=== PATIENT | male | born 1970 | race Caucasian/White ===

== ENCOUNTER → 2017-04-11 | Outpatient (CLI) | payer OTHER ==
[~2017-04-11] MED LIST: AMLO5TAB2 PO; CETI10TA24 PO; DOCU-180 PO; HYDR-3240 PO; METH500T97 PO; OMEP10CA4 PO; OXYC-302 PO; PREG100C PO
[2017-04-11 15:20] LABS: EPI LOT# 5695218
[2017-04-11 15:27] LABS: HCT (PFA) 48.3 % (39.2-51.8); PLATELET (PFA) 186 x10^3/uL (130-400)
[2017-04-11 15:28] LABS: HEMATOCRIT 47.9 % (39.2-51.8); HEMOGLOBIN 16.5 g/dL (13.7-18.0); WHITE BLOOD COUNT 5.9 x10^3/uL (3.4-10)
[2017-04-11 15:40] LABS: BLOOD UREA NITROGEN 13 mg/dL (7-18)
[2017-04-11 15:59] LABS: EPI CARTRIDGE 91 SECONDS (72-193)
== END | disposition home or self-care (01) ==
LOC: STAR 14:03
PROVIDERS: ATTEND Neurological Surgery
DX: Z01.818 Encounter for other preprocedural examination (principal); M43.22 Fusion of spine, cervical region; M54.12 Radiculopathy, cervical region; R79.1 Abnormal coagulation profile
CPT/HCPCS: 36415; 71020; 80048; 81003; 85014; 85025; 85049; 85576; 85610; 85730; 93005

== ENCOUNTER 2017-04-19 05:45 | Inpatient (IN) | payer OTHER ==
[~2017-04-19] VITALS: Ht 182.9 cm; Wt 114.0 kg
[2017-04-19] MEDS ORDERED: LACTATED RINGERS 1,000 ML IV SCH (06:13)
[2017-04-19] MEDS ORDERED: FENTANYL PF 100 MCG/2ML ONE ×3 (06:57→09:50)
[2017-04-19] MEDS ORDERED: MIDAZOLAM 1 MG/ML, 2ML ONE (06:57)
[2017-04-19] MEDS ORDERED: ROCURONIUM 10 MG/ML ONE (06:58)
[2017-04-19] MEDS ORDERED: PROPOFOL 10 MG/ML, 20ML ONE (06:58)
[2017-04-19] MEDS ORDERED: CEFAZOLIN 1,000 MG ONE ×2 (07:04)
[2017-04-19] MEDS ORDERED: DEXAMETHASONE 4 MG/ML, 1ML ONE ×3 (07:04)
[2017-04-19] MEDS ORDERED: THROMBIN 5,000 UNIT VIAL TP ONE (07:13)
[2017-04-19] MEDS ORDERED: BACITRACIN 50,000 UNIT ONE (07:13)
[2017-04-19] MEDS ORDERED: EPINEPHRINE 1 MG/ML, 1ML ONE (07:13)
[2017-04-19] MEDS ORDERED: BUPIVACAINE/PF 0.5% ONE (07:13)
[2017-04-19] MEDS ORDERED: DIAZEPAM 5 MG/ML, 2ML IVPush PRN (09:00)
[2017-04-19] MEDS ORDERED: OXYcodone 5 MG/5 ML ORAL.SOL UDC PO PRN (09:00)
[2017-04-19] MEDS ORDERED: hydrALAzine 20 MG/ML, 1ML IV PRN (09:00)
[2017-04-19] MEDS ORDERED: MEPERIDINE/PF 25MG/0.5ML IVPush PRN (09:00)
[2017-04-19] MEDS ORDERED: LABETALOL 5MG/ML, 20ML IV PRN ×2 (09:00→12:30)
[2017-04-19] MEDS ORDERED: ACETAMINOPHEN 325 MG TABLET PO PRN (09:00)
[2017-04-19] MEDS ORDERED: ONDANSETRON 2MG/ML, 2ML IVPush PRN (09:00)
[2017-04-19] MEDS ORDERED: PROMETHAZINE 25 MG/ML, 1ML IV PRN (09:00)
[2017-04-19] MEDS ORDERED: ONDANSETRON 2MG/ML, 2ML ONE ×2 (09:14)
[2017-04-19] MEDS ORDERED: GLYCOPYRROLATE 0.4 MG/2 ML, 2ML ONE (09:24)
[2017-04-19] MEDS ORDERED: NEOSTIGMINE 1 MG/ML, 10ML ONE (09:24)
[2017-04-19] MEDS ORDERED: HYDROmorphone 1 MG/ML, 1ML ONE (09:50)
[2017-04-19] MEDS: HYDROmorphone 1 MG/ML, 1ML IV PRN ×3 (09:55→10:25)
[2017-04-19] MEDS: FENTANYL PF 100 MCG/2ML IV PRN ×2 (10:50→11:00)
[2017-04-19] MEDS: HYDROcodone/APAP 5/325 TABLET PO PRN ×4 (12:28→22:39)
[2017-04-19] MEDS ORDERED: MAGNESIUM HYDROXIDE 8%, 30ML UDC PO PRN (12:30)
[2017-04-19] MEDS ORDERED: morphine SULFATE 10 MG/ML, 1ML IV PRN (12:30)
[2017-04-19] MEDS ORDERED: HYDROcodone/APAP 10/325 MG TABLET PO PRN (12:30)
[2017-04-19] MEDS ORDERED: DIAZEPAM 5 MG/ML, 2ML IV PRN (12:30)
[2017-04-19] MEDS ORDERED: ONDANSETRON 2MG/ML, 2ML IV PRN (12:30)
[2017-04-19] MEDS ORDERED: DIAZEPAM 5 MG TABLET PO PRN (12:30)
[2017-04-19] MEDS ORDERED: BISACODYL 10 MG SUPP PR PRN (12:30)
[2017-04-19] MEDS ORDERED: DIPHENHYDRAMINE 50 MG/ML, 1ML IVPush PRN (12:30)
[2017-04-19] MEDS ORDERED: PROMETHAZINE 25 MG/ML, 1ML IM PRN (12:30)
[2017-04-19 13:31] VITALS: BP 116/75
[2017-04-19] MEDS: NS + 20MEQ KCL 1,000 ML IV SCH (16:00)
[2017-04-19] MEDS: CEFAZOLIN PMX 1GM/50ML 50 ML IVPB SCH (16:00)
[2017-04-19] MEDS: CYCLOBENZAPRINE 10 MG TABLET PO PRN (16:00)
[2017-04-19 18:49] VITALS: BP 130/68
[2017-04-19] MEDS: PREGABALIN 100 MG CAPSULE PO SCH (21:41)
[2017-04-20 00:01] VITALS: BP 99/60
[2017-04-20] MEDS: CEFAZOLIN PMX 1GM/50ML 50 ML IVPB SCH (00:03)
[2017-04-20] MEDS: NS + 20MEQ KCL 1,000 ML IV SCH (02:20)
[2017-04-20 03:21] VITALS: BP 106/68
[2017-04-20] MEDS: HYDROcodone/APAP 5/325 TABLET PO PRN (04:59)
[2017-04-20] MEDS: CYCLOBENZAPRINE 10 MG TABLET PO PRN (04:59)
[2017-04-20 06:21] LABS: BLOOD UREA NITROGEN 16 mg/dL (7-18)
[2017-04-20 06:40] LABS: HEMATOCRIT 43.3 % (39.2-51.8); HEMOGLOBIN 14.8 g/dL (13.7-18.0); WHITE BLOOD COUNT 11.4 x10^3/uL (3.4-10)
[2017-04-20 06:57] VITALS: BP 113/68
[2017-04-20] MEDS ORDERED: DIAZ5TAB PO (08:05)
[2017-04-20] MEDS ORDERED: CYCL-259 PO (08:05)
[2017-04-20] MEDS ORDERED: HYDR-3307 PO (08:05)
[2017-04-20] MEDS: PREGABALIN 100 MG CAPSULE PO SCH (08:48)
[2017-04-20] MEDS ORDERED: SENNA/DOCUSATE TABLET PO SCH (09:00)
[2017-04-20] MEDS ORDERED: AMLODIPINE 5 MG TABLET PO SCH (09:00)
== END 2017-04-20 09:43 | disposition home or self-care (01) | DRG 472 ==
LOC: OUT 05:45 → 4NOR 11:30 → OUT 12:14
PROVIDERS: ADMIT Neurological Surgery; ATTEND Neurological Surgery
PROC: 0RB30ZZ Excision of Cervical Vertebral Disc, Open Approach (ICD-10-PCS; 2017-04-19)
PROC: 0RG20K0 Fusion of 2 or more Cervical Vertebral Joints with Nonautologous Tissue Substitute, Anterior Approach, Anterior Column, Open Approach (ICD-10-PCS; principal; 2017-04-19 07:30)
DX: M50.121 Cervical disc disorder at C4-C5 level with radiculopathy (principal); M50.021 Cervical disc disorder at C4-C5 level with myelopathy
CPT/HCPCS: 36415; 72040; 80048; 85025; 86850; 86900; C1713; J0171; J0690; J1100; J1170; J2250; J2405; J2704; J2710; J3010; J3360; J3480; J3490; C1762; J7120